=== PATIENT | female | born 1955 | race American Indian/Alaskan Native ===

== ENCOUNTER 2016-06-28 07:30 | Outpatient (CLI) | payer BC ==
--- NOTE | 2016-06-28 09:31 | Magnetic Resonance Report ---
MRI LUMBAR SPINE WITHOUT CONTRAST HISTORY: Lumbar radiculopathy. TECHNIQUE: axial T1, T2. sagittal T1,T2, STIR. COMPARISON: none. FINDINGS: The conus terminates at L1-2. No signal abnormality or mass. The cauda equina is within normal limits. No high-grade central canal stenosis. Normal height and alignment of the lumbar vertebra. The facet joints are in appropriate relationship. Normal bone marrow signal. No acute fracture or suspicious bone lesion. The paraspinal soft tissues are unremarkable. The discs are desiccated with mild to moderate narrowing at L1-2, L4-5 and L5-S1. L1-2: A moderate circumferential bulging disc is identified. A right paracentral annular tear and small disc protrusion is identified. There is effacement of the anterior thecal sac but no convincing mass effect on nerve roots. There is mild central canal narrowing measuring 8.8 mm in AP dimension. Mild facet arthropathy and hypertrophy of the ligamentum flavum. No significant neural foraminal narrowing. L2-3: A mild circumferential bulging disc is identified. Mild facet arthropathy and hypertrophy of the ligamentum flavum. The bulging disc lateralizes to the left side and results in 50% left neural foraminal narrowing. No significant right neural foraminal narrowing. No central canal stenosis. L3-4: The disc is within normal limits. Mild facet arthropathy and hypertrophy of the ligamentum flavum. No central canal stenosis. Bilateral neural foraminal narrowing is estimated at 25%. L4-5: Advanced disc narrowing and circular circumferential bulging disc is identified. A focal left paracentral annular tear without significant protrusion is identified. No central canal stenosis. Mild facet arthropathy and hypertrophy of the ligamentum flavum. There is moderate right neural foraminal narrowing estimated at 50-75%. There is severe left neural foraminal narrowing estimated at greater than 75%. L5-S1: Moderate disc space narrowing and circumferential bulging disc is identified. Mild facet arthropathy and hypertrophy of the ligamentum flavum. Moderate to severe bilateral neural foraminal narrowing is estimated at 75%. IMPRESSION: Moderate to severe multilevel degenerative disc disease and facet arthropathy as outlined above. There is multilevel neural foraminal narrowing. The lowest 2 levels appear to be the most effective. Mild central canal narrowing at L1-2. No evidence for fracture, malalignment or bone lesion.
== END 2016-06-28 07:31 | disposition home or self-care (01) ==
LOC: MRI 07:30
PROVIDERS: ATTEND Physician Assistant
DX: M51.16 Intervertebral disc disorders with radiculopathy, lumbar region (principal); M12.88 Other specific arthropathies, not elsewhere classified, other specified site; M24.28 Disorder of ligament, vertebrae
CPT/HCPCS: 72148

== ENCOUNTER 2017-04-26 13:12 | Outpatient (CLI) | payer BC ==
--- NOTE | 2017-04-26 15:30 | Mammography Report ---
BILATERAL MAMMOGRAM: FINDINGS: The breast tissue is heterogeneously dense, which could obscure detection of small masses (approximately 50%-75% glandular). No mass, distortion, suspicious calcification, or skin change is seen. No significant change is identified when compared to prior examination in February 2015. CAD was utilized. IMPRESSION: Negative mammogram. There is no mammographic evidence of malignancy. RECOMMENDATION: Follow-up per ACS guidelines. BI-RADS CATEGORY: 1 = Negative ACR BI-RADS MAMMOGRAPHIC CODES: 0 = Needs additional imaging evaluation; 1 = Negative; 2 = Benign; 3 = Probably benign; 4 = Suspicious; 5 = Malignant; 6 = Known biopsy-proven malignancy COMMENT: 1. Dense breast tissue, i.e., adenosis, fibrocystic changes, etc., may obscure an underlying neoplasm. 2. Approximately 10% of cancers are not detected with mammography. 3. A negative mammography report should not delay biopsy if a clinically suspicious mass is present. COMMENT: Patient follow-up letters are generated in [place].
== END 2017-04-26 13:13 | disposition home or self-care (01) ==
LOC: MAMMO 13:12
PROVIDERS: ATTEND Physician Assistant
DX: Z12.31 Encounter for screening mammogram for malignant neoplasm of breast (principal)
CPT/HCPCS: 77067

== ENCOUNTER 2019-05-09 09:51 | Outpatient (CLI) | payer BC ==
[2019-05-09 11:09] LABS: Basophils # (Auto) 0.1 K/mm3 (0.0-0.1); Basophils % (Auto) 0.9 % (0.0-1.8); Eosinophils # (Auto) 0.2 K/mm3 (0.0-0.4); Eosinophils % (Auto) 2.9 % (0.0-4.3); Hematocrit 39.2 % (30.3-42.9); Hemoglobin 12.7 gm/dl (10.1-14.3); Lymphocytes # (Auto) 3.4 K/mm3 (1.2-5.4); Mean Corpuscular HGB Conc 32 % (30-34); Mean Corpuscular Volume 88 fl (79-97); Monocytes # (Auto) 0.6 K/mm3 (0.0-0.8); Monocytes % (Auto) 7.9 % (0.0-7.3); Platelet Count 283 K/mm3 (140-440); Red Blood Count 4.45 M/mm3 (3.65-5.03); Red Cell Distribution Width 13.6 % (13.2-15.2)
--- NOTE | 2019-05-09 11:09 | Mammography Report ---
DIGITAL SCREENING MAMMOGRAM WITH CAD, 05/09/2019 INDICATION: Routine screening mammography. TECHNIQUE: Digital bilateral 2D mammography was obtained in the craniocaudal and mediolateral obliq ue projections. This examination was interpreted with the benefit of Computer-Aided Detection analysi s. COMPARISON: 04/26/2017 FINDINGS: Breast Density: The breasts are heterogeneously dense, which may obscure small masses. There is no evidence of dominant mass, suspicious calcifications or architectural distortion in eithe r breast. IMPRESSION: No mammographic evidence of malignancy. Follow up recommendation: Routine yearly BI-RADS Category 1: Negative. A "normal" or negative report should not discourage follow up or biopsy of a clinically significant f inding. A written summary of these findings will be mailed to the patient. The patient will be entered into a mammography reporting system which will generate a reminder letter for the patient's next appointmen t at the appropriate interval. The [employer] recommends yearly mammograms starting at age 40 and continuing as l sunny as a woman is in good health. Breast MRI is recommended for women with an approximate 20-25% or greater lifetime risk of breast cancer, including women with a strong family history of breast or ova abby cancer or who have been treated for Hodgkin's disease. Signer Name: Shady Godfrey MD Signed: 05/09/2019 11:04 AM Workstation Name: [id number]
[2019-05-09 11:29] LABS: Alanine Aminotransferase 31 units/L (7-56); Albumin 4.3 g/dL (3.9-5); BUN/Creatinine Ratio 34; Blood Urea Nitrogen 17 mg/dL (7-17); Calcium 9.7 mg/dL (8.4-10.2); Hemolysis Index 5; LDL Cholesterol,Direct 153 mg/dL (50-130)
[2019-05-09 12:04] LABS: Chol/HDL Ratio 4.75 %; HDL Cholesterol 41 mg/dL (40-59)
== END 2019-05-09 09:52 | disposition home or self-care (01) ==
LOC: LAB 09:51 → MAMMO 09:51
PROVIDERS: ATTEND Physician Assistant
DX: Z12.31 Encounter for screening mammogram for malignant neoplasm of breast (principal); I10 Essential (primary) hypertension
CPT/HCPCS: 36415; 77067; 80053; 80061; 85025

== ENCOUNTER 2019-07-05 10:05 | Outpatient (CLI) | payer BC ==
[2019-07-05 10:22] LABS: Basophils # (Auto) 0.1 K/mm3 (0.0-0.1); Basophils % (Auto) 1.3 % (0.0-1.8); Eosinophils # (Auto) 0.1 K/mm3 (0.0-0.4); Eosinophils % (Auto) 1.9 % (0.0-4.3); Hematocrit 40.5 % (30.3-42.9); Hemoglobin 13.3 gm/dl (10.1-14.3); Lymphocytes # (Auto) 3.1 K/mm3 (1.2-5.4); Lymphocytes % (Auto) 43.1 % (13.4-35.0); Mean Corpuscular HGB Conc 33 % (30-34); Mean Corpuscular Volume 88 fl (79-97); Monocytes # (Auto) 0.5 K/mm3 (0.0-0.8); Monocytes % (Auto) 6.4 % (0.0-7.3); Platelet Count 300 K/mm3 (140-440); Red Blood Count 4.62 M/mm3 (3.65-5.03); Red Cell Distribution Width 13.6 % (13.2-15.2)
[2019-07-05 11:20] LABS: Chol/HDL Ratio 3.89 %
== END 2019-07-05 10:06 | disposition home or self-care (01) ==
LOC: LAB 10:05
PROVIDERS: ATTEND Physician Assistant
DX: E78.00 Pure hypercholesterolemia, unspecified (principal); D72.820 Lymphocytosis (symptomatic)
CPT/HCPCS: 36415; 80061; 85025

== ENCOUNTER 2019-08-08 06:28 | Outpatient (CLI) | payer BC ==
[2019-08-08 06:59] LABS: Blood Urea Nitrogen 11 mg/dL (7-17)
--- NOTE | 2019-08-08 08:14 | Cat Scan Report ---
CT CHEST WITHOUT AND WITH CONTRAST INDICATION / CLINICAL INFORMATION: MAIN: R59.0 AXILLARY ADENOPATHY 100 ml Omni 300. TECHNIQUE: Axial CT images were obtained through the chest after 100 cc of Omnipaque 300 IV contrast. Sagittal a nd coronal reformatted images. All CT scans at this location are performed using CT dose reduction fo r ALARA by means of automated exposure control. COMPARISON: None available. FINDINGS: HEART: No significant abnormality. THORACIC AORTA: No significant abnormality. MEDIASTINUM and BRENT: No significant abnormality. LUNGS: Minimal to mild centrilobular emphysematous changes are identified primarily in the upper lobe s. Otherwise the lungs are clear. No suspicious nodule, infiltrate, pleural fluid or pneumothorax. SKELETAL SYSTEM: No significant abnormality. UPPER ABDOMEN: No significant abnormality. ADDITIONAL FINDINGS: No pathologic thoracic adenopathy is detected. There are a few scattered subcent imeter benign-appearing lymph nodes in both axillary chains. IMPRESSION: No thoracic adenopathy is detected. Minimal to mild emphysematous changes in the upper lung zones. Signer Name: Nathaniel Cordova Jr, MD Signed: 08/08/2019 8:10 AM Workstation Name: [id number]
== END 2019-08-08 06:29 | disposition home or self-care (01) ==
LOC: CT 06:28
PROVIDERS: ATTEND Internal Medicine Hematology & Oncology
DX: J43.8 Other emphysema (principal); R59.0 Localized enlarged lymph nodes
CPT/HCPCS: 36415; 71270; 82565; 84520; Q9967

== ENCOUNTER 2020-03-24 10:00 | Outpatient (CLI) | payer BC ==
[2020-03-24 10:37] LABS: Basophils # (Auto) 0.1 K/mm3 (0.0-0.1); Basophils % (Auto) 1.1 % (0.0-1.8); Eosinophils # (Auto) 0.1 K/mm3 (0.0-0.4); Eosinophils % (Auto) 1.4 % (0.0-4.3); Hematocrit 36.2 % (30.3-42.9); Hemoglobin 11.6 gm/dl (10.1-14.3); Lymphocytes # (Auto) 3.6 K/mm3 (1.2-5.4); Lymphocytes % (Auto) 45.8 % (13.4-35.0); Mean Corpuscular HGB Conc 32 % (30-34); Mean Corpuscular Volume 87 fl (79-97); Monocytes # (Auto) 0.5 K/mm3 (0.0-0.8); Monocytes % (Auto) 5.9 % (0.0-7.3); Platelet Count 343 K/mm3 (140-440); Red Blood Count 4.19 M/mm3 (3.65-5.03); Red Cell Distribution Width 13.4 % (13.2-15.2)
[2020-03-24 11:04] LABS: Alanine Aminotransferase 14 units/L (7-56); Albumin 4.3 g/dL (3.9-5); Blood Urea Nitrogen 17 mg/dL (7-17); Calcium 9.6 mg/dL (8.4-10.2); Chol/HDL Ratio 2.67 %; HDL Cholesterol 46 mg/dL (40-59); Hemolysis Index 25; LDL Cholesterol,Direct 72 mg/dL (50-130)
[2020-03-24 11:28] LABS: BUN/Creatinine Ratio 28
== END 2020-03-24 10:01 | disposition home or self-care (01) ==
LOC: LAB 10:00
PROVIDERS: ATTEND Physician Assistant
DX: E78.5 Hyperlipidemia, unspecified (principal); I10 Essential (primary) hypertension
CPT/HCPCS: 36415; 80053; 80061; 85025

== ENCOUNTER 2020-10-09 09:12 | Outpatient (CLI) | payer BC ==
--- NOTE | 2020-10-09 11:20 | Mammography Report ---
DEXA BONE DENSITY SCAN INDICATION / CLINICAL INFORMATION: OSTEO SCREENING. 65 years Female COMPARISON: None available. LUMBAR SPINE, L1-L4: - Bone mineral density (BMD) = 0.819 g/cm2. - T-score = -2.1 - Z-score = -1.0 Change (%) since most recent prior (if available): None available. RIGHT HIP, NECK : - Bone mineral density (BMD) = 0.547 g/cm2. - T-score = -2.7 - Z-score = -1.5 Change (%) since most recent prior (if available): None available. IMPRESSION: 1. WHO Classification: Osteoporosis. Fracture Risk: High. Note: 10-Year Fracture Risk (FRAX) not reported. This DEXA unit lacks FRAX functionality. BMD Reporting Guidelines (ISCD, 2015) BMD Reporting in Postmenopausal Women and in Men Age 50 and Older - T-scores are preferred. - The WHO densitometric classification is applicable. BMD Reporting in Females Prior to Menopause and in Males Younger Than Age 50 - Z-scores, not T-scores, are preferred. This is particularly important in children. - A Z-score of -2.0 or lower is defined as below the expected range for age, and a Z-score above -2.0 is within the expected range for age. - Osteoporosis cannot be diagnosed in men under age 50 on the basis of BMD alone. - The WHO diagnostic criteria may be applied to women in the menopausal transition. http://www.iscd.org/official-positions/6395-tedc-ebwsekuq-positions-adult/ Signer Name: Jonnie Gupta MD Signed: 10/09/2020 11:16 AM Workstation Name: [id number]
--- NOTE | 2020-10-09 11:32 | Mammography Report ---
. DIGITAL SCREENING MAMMOGRAM WITH CAD, 10/09/2020 INDICATION: Routine screening mammography. TECHNIQUE: Digital bilateral 2D mammography was obtained in the craniocaudal and mediolateral obliq ue projections. This examination was interpreted with the benefit of Computer-Aided Detection analysi s. COMPARISON: 05/09/2019 FINDINGS: Breast Density: The breasts are heterogeneously dense, which may obscure small masses. There is no evidence of dominant mass, suspicious calcifications or architectural distortion in eithe r breast. IMPRESSION: Follow up recommendation: Routine yearly BI-RADS Category 1: Negative. A "normal" or negative report should not discourage follow up or biopsy of a clinically significant f inding. A written summary of these findings will be mailed to the patient. The patient will be entered into a mammography reporting system which will generate a reminder letter for the patient's next appointmen t at the appropriate interval. The [employer] recommends yearly mammograms starting at age 40 and continuing as l sunny as a woman is in good health. Breast MRI is recommended for women with an approximate 20-25% or greater lifetime risk of breast cancer, including women with a strong family history of breast or ova abby cancer or who have been treated for Hodgkin's disease. Signer Name: Dar Samuel MD Signed: 10/09/2020 11:27 AM Workstation Name: [id number]
== END 2020-10-09 09:13 | disposition home or self-care (01) ==
LOC: MAMMO 09:12
PROVIDERS: ATTEND Physician Assistant
DX: Z12.31 Encounter for screening mammogram for malignant neoplasm of breast (principal); M81.0 Age-related osteoporosis without current pathological fracture; M85.88 Other specified disorders of bone density and structure, other site; Z13.820 Encounter for screening for osteoporosis; Z78.0 Asymptomatic menopausal state; Z12.39 Encounter for other screening for malignant neoplasm of breast
CPT/HCPCS: 77067; 77080

== ENCOUNTER 2020-11-02 08:01 | Outpatient (CLI) | payer BC ==
--- NOTE | 2020-11-02 10:56 | Treadmill Report ---
[facility] Test Date: 2020-11-02 Test Time: 07:38:57 Pat Name: THOMAS JOSEPH Department: Room: Gender: F Lever Miller: Heather Callejas : 1955 Requested By: MARIAM ROSARIO Order Number: [id number] Reading MD: Ferdinand Sands Interpretive Statements Electronically Signed On 11-02-2020 10:56:34 EDT by Ferdinand Sands
--- NOTE | 2020-11-03 00:25 | Treadmill Report ---
DATE OF SERVICE: 11/02/2020 PLAIN TREADMILL STRESS TEST REFERRING PHYSICIAN: Dr. Carrie Perez. PROTOCOL: The patient was assessed to lab in a postabsorptive state, exercised on a standard Denys protocol treadmill. Resting blood pressure is 140/70. Resting EKG reveals normal sinus rhythm, normal axis, no ST changes. The patient exercised for a total of 6 minutes on a standard Denys protocol treadmill to achieve a peak heart rate of 131. She did achieve her target heart rate. Some artifact is noted, but no ST changes, arrhythmias, or chest pain during stress or recovery. CONCLUSIONS: 1. Below average exercise tolerance. 2. Normal exercise stress test without evidence of diagnostic ST changes, arrhythmias, or chest pain during stress or recovery. 3. Appropriate heart rate/blood pressure response in recovery. The patient to follow up with Dr. Ricketts in the office. TID: [id number] RECEIPT: [id number] FRANTZ/WOLF
== END 2020-11-02 08:02 | disposition home or self-care (01) ==
LOC: ECHO 08:01
PROVIDERS: ATTEND Internal Medicine Cardiovascular Disease
DX: R07.89 Other chest pain (principal); R60.0 Localized edema; I10 Essential (primary) hypertension
CPT/HCPCS: 93017; 93306